=== PATIENT | male | born 1995 | race Caucasian/White ===

== ENCOUNTER 2024-09-03 15:53 | Emergency (ER) | payer OTHER, SELFPAY ==
[2024-09-03 16:12] VITALS: BP 140/109
--- NOTE | 2024-09-03 16:34 | ED.SKININJ ---
HPI-Injury
General
Chief Complaint: Skin Surface Trauma
Source: patient
Exam Limitations: none
Time Seen by Provider: 09/03/24 16:23
Nursing documentation reviewed up to this point in time: agreed with
History of Present Illness-Injury
Is this injury a work related problem?: Yes
Is pt an associate of [facility]/[place]?: No
Initial Injury comments:
Cut finger on lawnmower blade. Sustained lac to right distal 4th finger. Injury occurred just [employer]
Past History
Past History
ED Past Medical History: None
ED Past Surgical History: None
Review of Systems
Review of Systems
Allergies reviewed?: Yes
All Other Systems: ROS reviewed and negative except as documented in HPI and ROS
Constitutional: Reports no symptoms
Musculoskeletal: Reports no symptoms
Skin: Reports other (laceration to right distal 4th finge)
Neurological: Reports no symptoms
Psychiatric: Reports no symptoms
Skin Exam
Laceration
Right Distal Fourth Finger:
Length in cm: 2
Orientation: horizontal
Type of Laceration: simple
Any active bleeding?: low grade venous oozing
Distal skin color and temperature: normal-warm & good color
Normal distal neurovascular exam: Yes
Range of motion: full
Phy Exam
General Physical Exam
General Presentation: well appearing and no apparent distress
General age: appears stated age
General Skin: warm and dry
General Habitus: normal
General Mental: alert
Musculoskeletal Exam
Musculoskeletal Exam: full ROM and neuro vasc intact
Skin Exam
Skin Exam: normal color, warm/dry and no rash
Psychiatric Exam
Psychiatric Exam: normal mood/affect
Course
Orders/Labs/Results
Orders:
Orders
09/03/24 16:23
Finger(s)/Thumb 2 View Rt [CR Finger(s)/thumb Min 2 Vw Rt] Urgent
Comment:
Reason For Exam: trauma
09/03/24 16:24
Tetanus/Diphth/Acelpertussis [Adacel] 0.5 ml IM .ONCE ONE
09/03/24 17:36
Cephalexin Monohydrate [Keflex] 500 mg PO NOW STA
Vital Signs
Initial and Last Documented VS:
Initial Vital Signs
Temp Pulse Resp BP Pulse Ox
98.0 F 68 18 140/109 98
09/03/24 16:12 09/03/24 16:12 09/03/24 16:12 09/03/24 16:12 09/03/24 16:12
Last Documented Vital Signs
Temp Pulse Resp BP Pulse Ox
98.0 F 68 18 140/109 98
09/03/24 16:12 09/03/24 16:12 09/03/24 16:12 09/03/24 16:12 09/03/24 16:12
Procedures
Laceration Closure
Right Fourth Finger:
Status of Wound: dirty
Description of Wound Edges: sharp
Preparation: cleaned with soap & water, cleaned with saline and cleaned with Betadine
Anesthesia: 1% Lidocaine and Digital-Regional
Revision/Debridement: routine- no revision
Wound exploration: explored to base- no FB and no tendon involvement
Type of Closure: single layer closure
Skin Closure Material: 5-0 prolene
Number of sutures: 5
MDM/Problems Addressed
Differential Diagnosis Includes:
Patient to ED for laceration repair to right 4th finger. Cut on lawnmower blade. Xray reviewed. +fx base of distal phalanx. Keflex started in dept, rx sent to pharmacy. WOund soaked with NSS/H2O2, scrubbed with betadine. No foreign body
detected. No evidence of tendon injury. Laceration repair completed without incident. He is discharged home and will follow up with his healthcare provider. given instructions on s/s to return to ED and he is agreeable to pplan.
*Radiology
Radiology exam reviewed: radiology read reviewed
*Pulse Oximetry
Patient hypoxic: no
*Critical Care Note
Total Time (30-74mins, 75-104mins- exclusive of procedures): Not Applicable
ED Attending Note
-
Portions of this chart may have been created with voice recognition software.� Occasional wrong word or��sound alike� substitutions may have occurred due to the inherent limitations of voice recognition software.
Discharge Plan
Departure
Patient Disposition: Home (Routine Discharge)
Date of Disposition: 09/03/24
Time of Disposition: 17:40
Patient with high blood pressure during this ER visit?: No
Condition: Good
Covid-19: Not Applicable
Discharge Problem:
Finger laceration, Finger fracture
Instructions: Laceration Repair With Stitches (DC), Finger Fracture ED
Prescriptions:
New
cephalexin 500 mg capsule
500 mg PO BID 7 Days Qty: 14 0RF
Referrals:
NONE,* [Family Provider] -
Activity Restrictions/Additional Instructions:
Sutures can be removed in 7-10 days by your healthcare povider.
Discharge Date and Time
Print Language: IVORIAN
[2024-09-03] MEDS: ADACEL 0.5 ML IM (17:46)
[2024-09-03] MEDS: KEFLEX 500 MG PO (17:48)
== END 2024-09-03 17:52 | disposition home or self-care (01) ==
LOC: EMR 15:53
PROVIDERS: EMERGENCY PHYSICIAN Emergency Medicine
DX: S62.634B Displaced fracture of distal phalanx of right ring finger, initial encounter for open fracture (principal); W28.XXXA Contact with powered lawn mower, initial encounter; Z23 Encounter for immunization
CPT/HCPCS: 99283; 12001; 90471; 73140; 90715